=== PATIENT | female | born 1980 | race African-American/Black ===

== ENCOUNTER 2017-07-04 15:26 | Inpatient (IN) | payer MEDICAID ==
[~2017-07-04] VITALS: Ht 170.2 cm; Wt 91.6 kg
--- NOTE | ~2017-07-04 | OP ---
PATIENT NAME: SPENCER US MEDICAL RECORD: [id number] :76 LOCATION:D.M2 D.2137 ADMISSION DATE:07/04/17 SURGEON: ANT ALLISNO MD DATE OF OPERATION: 07/08/2017 REFERRING PHYSICIAN: Low Saldaña MD PREOPERATIVE DIAGNOSES: Dialysis access failure with thrombosis of right brachiocephalic arteriovenous fistula. OPERATION PERFORMED: Open exploration of AV fistula with attempted thrombectomy and then conversion to a 6 mm Acuseal PTFE AV graft between the brachial artery and proximal basilic vein. SURGEON: Ant Allison MD ANESTHESIA: General with LMA per INSERT OPERATOR. PREOPERATIVE NOTE: Ms. Us is a 37-year-old female with end-stage renal disease on chronic hemodialysis, who has been dialyzing with a right brachiocephalic fistula, which is thrombosed and she is brought to the operating room to attempt to salvage it. DESCRIPTION OF PROCEDURE: Under anesthesia in supine position, she is prepped and draped in sterile manner. The fistula was exposed through an incision just above the antecubital space. It was quite densely inflamed with organized fibrotic thrombus. I incised the fistula and tried to remove the thrombus and it was obviously advanced beyond the point at which salvage of this fistula was going to be possible. I therefore exposed the brachial artery and anastomosed a 6 mm diameter Acuseal PTFE graft and put this in a rainbow tunnel and in the upper arm made another incision and exposed the proximal basilic vein. The vessels were flushed with heparinized saline as was the graft and an end-to-side, [id number] to [id number] anastomosis performed with running 6-0 Prolene. When completed and the occluding loops and clamps released, excellent flow was established within the fistula. The wounds were irrigated with Ancef/gentamicin solution and closed in layers with Vicryl and running intracuticular 4-0 Monocryl and Dermabond glue. They were dressed with Maxorb Ag, Tegaderm, and Cavilon skin prep. Excised specimens of the thrombosed fistula were discarded. The patient was awakened and taken to the recovery room. She should be able to use this Acuseal fistula tomorrow. Diagnoses are end-stage renal disease, on dialysis and thrombosis of right arm AV fistula and dependence on hemodialysis, hypertension. Ideally, we will wait 2 weeks to use the fistula. It is Acuseal and her dialysis unit will be reminded to use Acuseal protocol and consider using chronic anticoagulation therapy. She can be referred to [facility] for removal of her tunneled dialysis catheter once her new graft was demonstrated to be reliable for access. I will plan to see her back in my office next week. TRANSINT:[id number] Voice Confirmation ID: [id number] DOCUMENT ID: [id number] OPERATIVE REPORT [id number] SPENCER US JAMES MD at 2050 CC: LOW SALDAÑA MD [id number] DICTATION DATE: 08/13/17 0850 STAVE PLANER TENDER: 08/13/17 1130 DIS IN 07/09/17 [facility] [address] [place] [address]
--- NOTE | ~2017-07-04 | OP ---
PATIENT NAME: SPENCER US MEDICAL RECORD: [id number] :76 LOCATION:D. D.2137 ADMISSION DATE:07/04/17 SURGEON: ANT ALLISON MD DATE OF OPERATION: 07/05/2017 PREOPERATIVE DIAGNOSES: Dialysis access failure with thrombosis of right brachiocephalic arteriovenous fistula, end-stage renal disease, dependence on hemodialysis. POSTOPERATIVE DIAGNOSES: Dialysis access failure with thrombosis of right brachiocephalic arteriovenous fistula, end-stage renal disease, dependence on hemodialysis. OPERATION PERFORMED: Ultrasound-guided insertion of a right internal jugular tunneled dialysis catheter 19-cm HemoSplit. SURGEON: Ant Allison MD ANESTHESIA: General with LMA per PRESS SECRETARY PREOPERATIVE NOTE: Ms. Us is a 37-year-old -[place] patient from [place] who has been on dialysis for the last few years with a right brachiocephalic AV fistula. It thrombosed this week. Yesterday, Dr. Webster at [facility] attempted to restore it and dilated a cephalic arch stenosis, but found very hard organized clot in the juxta anastomotic segment or arterial side of the fistula, but he was unable to clear and the fistula would not open as a result. She needs an open revision and thrombectomy, but there is no time to do that today. She is brought to the operating room now so that we can place a tunneled dialysis catheter so that she may dialyze hopefully this evening and again during the weekend. I am going to try and I am planning to take her back to the operating room on Saturday for the open thrombectomy and revision procedure. DESCRIPTION OF PROCEDURE: Under LMA general anesthesia per PRESS SECRETARY, the patient is prepped and draped in sterile manner. I used ultrasound to locate the right internal jugular vein which though she had had prior TDCs, was indeed patent and of normal caliber and was fully compressible with no filling defects. I made an incision over it at the base of the neck and through that incision with continuous ultrasound guidance, advanced a needle and guidewire into the internal jugular vein. Under fluoroscopy, I passed dilators over the wire and lastly, a peel-away introducer. I chose a 19-cm HemoSplit. I made an incision beneath the collarbone and pulled the catheter through that and a subcutaneous tunnel up to the cervical incision. The catheter was inserted through the peel-away sheath as it was removed and under fluoroscopy, the catheter was seen to be well positioned with its tip in the right atrium. No kinks or other complications. Both lumens were accessed and aspirated, free return of blood confirmed. They were then flushed with saline and heparin lock solution, clamped, and capped. The wounds were closed with interrupted inverted 3-0 Vicryl. The catheter was sutured to the skin, near the entry site with 2-0 Prolene, and sterile dressings were applied. She was awakened and taken to the recovery room. There was no blood loss of consequence, perhaps 15 cc was spilled. All sponges, instruments and needles were accounted for. No drain was used and no surgical specimen was submitted for histopathology. OPERATIVE REPORT [id number] SPENCER US TRANSINT:[id number] Voice Confirmation ID: [id number] DOCUMENT ID: [id number] ANT ALLISON MD at 1750 CC: RE WEBSTER [id number] DICTATION DATE: 07/05/172036 DEPUTY ATTORNEY GENERAL: 07/06/17 0154 DIS IN 07/09/17 [facility] [address] [place] [address]
[2017-07-04 16:17] VITALS: BP 147/59; BMI 31.8
[2017-07-04 17:00] LABS: BASOPHILS 0.7 % (0-2); EOSINOPHILS 1.6 % (0-7); HEMATOCRIT 29.9 % (36.0-48.0); HEMOGLOBIN 9.5 g/dL (12-16); IMMATURE GRANULOCYTES 0.1 % (0-5); LYMPHOCYTES 24.3 % (15-50); MCH 25.3 pg (26.0-34.0); MCHC 31.8 g/dL (31.0-37.0); MCV 79.5 fL (80.0-100.0); MEAN PLATELET VOLUME 10.4 fL (7.4-10.4); MONOCYTES 6.8 % (2-11); NEUTROPHILS 66.5 % (40-80); PLATELET COUNT 275 10x3/uL (130-400); RBC 3.76 10x6/uL (4.00-5.40); RDW 17.8 % (11.5-14.5); WBC 8.2 10x3/uL (4.8-10.8)
[2017-07-04 17:19] LABS: ALBUMIN 2.6 g/dL (3.4-5.0); ANION GAP 22.2 mmol/L (8-16); BILIRUBIN - TOTAL 0.34 mg/dL (0.2-1.3); CARBON DIOXIDE 21.9 mmol/L (21.0-32.0); CREATININE - SERUM 11.4 mg/dL (0.6-1.3); PROTEIN - SERUM 8.5 g/dL (6.4-8.2)
[2017-07-04 17:23] LABS: POTASSIUM - SERUM 6.1 mmol/L (3.5-5.1)
[2017-07-04 18:23] LABS: INR 1.06 (0.85-1.17); PROTIME 13.4 SECONDS (11.6-15.0)
[2017-07-04 18:24] LABS: APTT 38.9 SECONDS (22.8-39.4)
[2017-07-04] MEDS ORDERED: SENSIPAR90 MG PO (20:28)
[2017-07-04] MEDS ORDERED: COREG12.5 MG PO (20:28)
[2017-07-04] MEDS ORDERED: NORVASC5 MG PO (20:28)
[2017-07-04] MEDS ORDERED: RENVELA800 MG PO (20:29)
[2017-07-04] MEDS ORDERED: NEURONTIN600 MG PO (20:29)
[2017-07-04] MEDS ORDERED: ZESTRIL20 MG PO (20:29)
[2017-07-04] MEDS ORDERED: NOVOLOG100 U/M1 SC (20:30)
[2017-07-04] MEDS ORDERED: CYCLOBENZAPRINE10 MG PO (20:31)
[2017-07-04] MEDS ORDERED: SENSIPAR60 MG PO (20:32)
[2017-07-05 00:46] VITALS: BP 166/58
[2017-07-05 05:50] VITALS: BP 196/85
[2017-07-05 06:42] LABS: BASOPHILS 0.9 % (0-2); EOSINOPHILS 2.8 % (0-7); HEMATOCRIT 28.6 % (36.0-48.0); HEMOGLOBIN 8.9 g/dL (12-16); IMMATURE GRANULOCYTES 0.3 % (0-5); LYMPHOCYTES 25.4 % (15-50); MCH 24.7 pg (26.0-34.0); MCHC 31.1 g/dL (31.0-37.0); MCV 79.2 fL (80.0-100.0); MEAN PLATELET VOLUME 10.3 fL (7.4-10.4); MONOCYTES 9.7 % (2-11); NEUTROPHILS 60.9 % (40-80); PLATELET COUNT 251 10x3/uL (130-400); RBC 3.61 10x6/uL (4.00-5.40); RDW 17.9 % (11.5-14.5); WBC 6.7 10x3/uL (4.8-10.8)
[2017-07-05 07:10] LABS: CALCIUM 9.1 mg/dL (8.5-10.1); CARBON DIOXIDE 19.1 mmol/L (21.0-32.0); CREATININE - SERUM 12.6 mg/dL (0.6-1.3)
[2017-07-05 07:12] LABS: ANION GAP 22.9 mmol/L (8-16)
[2017-07-05 07:55] VITALS: BP 176/58
[2017-07-05 11:12] VITALS: Ht 170.2 cm; Wt 91.6 kg
[2017-07-05 11:37] VITALS: BP 174/61
[2017-07-05 15:35] VITALS: BP 158/60
[2017-07-06 01:00] VITALS: BP 126/81
[2017-07-06 05:30] VITALS: BP 153/73
[2017-07-06 07:06] LABS: BASOPHILS 0.6 % (0-2); EOSINOPHILS 2.7 % (0-7); HEMATOCRIT 28.6 % (36.0-48.0); HEMOGLOBIN 8.9 g/dL (12-16); IMMATURE GRANULOCYTES 0.2 % (0-5); LYMPHOCYTES 16.5 % (15-50); MCHC 31.1 g/dL (31.0-37.0); MCV 80.3 fL (80.0-100.0); MEAN PLATELET VOLUME 10.1 fL (7.4-10.4); MONOCYTES 4.2 % (2-11); NEUTROPHILS 75.8 % (40-80); PLATELET COUNT 236 10x3/uL (130-400); RBC 3.56 10x6/uL (4.00-5.40)
[2017-07-06 07:13] LABS: WBC 8.8 10x3/uL (4.8-10.8)
[2017-07-06 07:23] LABS: ANION GAP 20.5 mmol/L (8-16); CARBON DIOXIDE 21.8 mmol/L (21.0-32.0); POTASSIUM - SERUM 5.3 mmol/L (3.5-5.1)
[2017-07-06 07:26] LABS: CREATININE - SERUM 8.2 mg/dL (0.6-1.3)
[2017-07-06 08:52] VITALS: BP 157/74
[2017-07-06 11:35] VITALS: BP 143/72
[2017-07-06 16:21] VITALS: BP 159/69
[2017-07-06 20:59] VITALS: BP 139/82
[2017-07-07 02:21] VITALS: BP 138/74
[2017-07-07 06:13] VITALS: BP 139/82
[2017-07-07 07:35] LABS: BASOPHILS 0.6 % (0-2); EOSINOPHILS 3.8 % (0-7); HEMATOCRIT 29.3 % (36.0-48.0); HEMOGLOBIN 9.1 g/dL (12-16); IMMATURE GRANULOCYTES 0.2 % (0-5); LYMPHOCYTES 18.7 % (15-50); MCH 25.1 pg (26.0-34.0); MCHC 31.1 g/dL (31.0-37.0); MCV 80.7 fL (80.0-100.0); MEAN PLATELET VOLUME 10.1 fL (7.4-10.4); MONOCYTES 6.2 % (2-11); NEUTROPHILS 70.5 % (40-80); PLATELET COUNT 261 10x3/uL (130-400); RBC 3.63 10x6/uL (4.00-5.40); RDW 18.3 % (11.5-14.5); WBC 8.3 10x3/uL (4.8-10.8)
[2017-07-07 07:46] LABS: ANION GAP 21.1 mmol/L (8-16); CALCIUM 9.6 mg/dL (8.5-10.1); CARBON DIOXIDE 21.7 mmol/L (21.0-32.0); POTASSIUM - SERUM 5.8 mmol/L (3.5-5.1)
[2017-07-07 07:47] LABS: CREATININE - SERUM 10.7 mg/dL (0.6-1.3)
[2017-07-07 08:15] VITALS: BP 146/83
[2017-07-07 11:53] VITALS: BP 142/76
[2017-07-07 14:49] LABS: ANION GAP 21.2 mmol/L (8-16); CALCIUM 9.7 mg/dL (8.5-10.1); CARBON DIOXIDE 22.1 mmol/L (21.0-32.0); CREATININE - SERUM 11.5 mg/dL (0.6-1.3)
[2017-07-07 14:52] LABS: POTASSIUM - SERUM 6.3 mmol/L (3.5-5.1)
[2017-07-07 15:46] VITALS: BP 136/72
[2017-07-07 21:22] VITALS: BP 169/86
[2017-07-08 01:10] VITALS: BP 176/58
[2017-07-08 05:09] VITALS: BP 117/62
[2017-07-08 05:12] LABS: BASOPHILS 0.5 % (0-2); EOSINOPHILS 4.1 % (0-7); HEMATOCRIT 27.8 % (36.0-48.0); HEMOGLOBIN 8.8 g/dL (12-16); IMMATURE GRANULOCYTES 0.3 % (0-5); LYMPHOCYTES 18.8 % (15-50); MCH 25.2 pg (26.0-34.0); MCHC 31.7 g/dL (31.0-37.0); MCV 79.7 fL (80.0-100.0); MEAN PLATELET VOLUME 10.2 fL (7.4-10.4); MONOCYTES 6.3 % (2-11); PLATELET COUNT 303 10x3/uL (130-400); RBC 3.49 10x6/uL (4.00-5.40); RDW 18.3 % (11.5-14.5); WBC 7.6 10x3/uL (4.8-10.8)
[2017-07-08 05:29] LABS: ANION GAP 19.3 mmol/L (8-16); CALCIUM 9.5 mg/dL (8.5-10.1); CARBON DIOXIDE 24.4 mmol/L (21.0-32.0); CREATININE - SERUM 12.4 mg/dL (0.6-1.3); POTASSIUM - SERUM 4.7 mmol/L (3.5-5.1)
[2017-07-08 07:41] VITALS: BP 150/91
[2017-07-08 09:42] VITALS: BP 185/86
[2017-07-08 10:45] VITALS: BP 182/80
[2017-07-08 21:23] VITALS: BP 114/79
[2017-07-09 02:34] VITALS: BP 123/68
[2017-07-09 05:28] VITALS: BP 118/68
[2017-07-09 07:45] VITALS: BP 103/44
[2017-07-09 11:05] LABS: BASOPHILS 0.5 % (0-2); EOSINOPHILS 2.9 % (0-7); HEMATOCRIT 27.5 % (36.0-48.0); HEMOGLOBIN 8.4 g/dL (12-16); IMMATURE GRANULOCYTES 0.2 % (0-5); LYMPHOCYTES 16.6 % (15-50); MCH 24.6 pg (26.0-34.0); MCHC 30.5 g/dL (31.0-37.0); MCV 80.4 fL (80.0-100.0); MONOCYTES 6.8 % (2-11); PLATELET COUNT 269 10x3/uL (130-400); RBC 3.42 10x6/uL (4.00-5.40); RDW 18.1 % (11.5-14.5); WBC 8.5 10x3/uL (4.8-10.8)
[2017-07-09 11:08] LABS: ANION GAP 27.5 mmol/L (8-16); CALCIUM 9.7 mg/dL (8.5-10.1); CARBON DIOXIDE 18.3 mmol/L (21.0-32.0); CREATININE - SERUM 12.9 mg/dL (0.6-1.3)
[2017-07-09 11:10] LABS: POTASSIUM - SERUM 5.8 mmol/L (3.5-5.1)
[2017-07-09 11:25] LABS: APPEARANCE TURBID (CLEAR); BILIRUBIN NEGATIVE (NEGATIVE); COLOR YELLOW (YELLOW); GLUCOSE 50 mg/dL (NEGATIVE); KETONE MODERATE mg/dL (NEGATIVE); NITRITE NEGATIVE (NEGATIVE); PROTEIN 3+ mg/dL (NEGATIVE); UROBILINOGEN NORMAL (NORMAL)
[2017-07-09 11:26] LABS: BACTERIA MODERATE /hpf (NONE SEEN); MUCUS <1+ /lpf (NONE SEEN); WHITE CELLS - URINE >50 /hpf (0-5)
[2017-07-09 11:35] VITALS: BP 113/46
== END 2017-07-09 17:11 | disposition home health service (06) | DRG 252 ==
LOC: D.M2 15:26 → D.SDCHOLD 07-05 09:04 → D.M2 07-05 09:07
PROVIDERS: Internal Medicine Nephrology; Surgery
PROC: B2141ZZ Fluoroscopy of Right Heart using Low Osmolar Contrast (ICD-10-PCS; 2017-07-05)
PROC: B244ZZZ Ultrasonography of Right Heart (ICD-10-PCS; 2017-07-05)
PROC: 5A1D70Z Performance of Urinary Filtration, Intermittent, Less than 6 Hours Per Day (ICD-10-PCS; 2017-07-05)
PROC: 02H633Z Insertion of Infusion Device into Right Atrium, Percutaneous Approach (ICD-10-PCS; principal; 2017-07-05 17:00)
PROC: 03C70ZZ Extirpation of Matter from Right Brachial Artery, Open Approach (ICD-10-PCS; 2017-07-08)
PROC: 03170ZF Bypass Right Brachial Artery to Lower Arm Vein, Open Approach (ICD-10-PCS; 2017-07-08)
DX: T82.868A Thrombosis due to vascular prosthetic devices, implants and grafts, initial encounter (principal); N18.6 End stage renal disease; I13.2 Hypertensive heart and chronic kidney disease with heart failure and with stage 5 chronic kidney disease, or end stage renal disease; Y83.8 Other surgical procedures as the cause of abnormal reaction of the patient, or of later complication, without mention of misadventure at the time of the procedure; E11.22 Type 2 diabetes mellitus with diabetic chronic kidney disease; I50.9 Heart failure, unspecified; Z99.2 Dependence on renal dialysis; E87.5 Hyperkalemia; R41.82 Altered mental status, unspecified; Z72.0 Tobacco use